=== PATIENT | female | born 1945 ===

== ENCOUNTER 2017-06-08 06:08 | Emergency (ER) | payer OTHER ==
[2017-06-08 06:30] VITALS: RESP 16; TEMP 98.9
[2017-06-08 07:04] LABS: BASO # 0.01 K/mm3 (0.0-2.0); BASO % 0.1 % (0.0-3.0); EOS % 0.3 % (1.5-5.0); GRAN # 8.21 (1.4-6.5); GRAN % 83.4 % (50.0-68.0); HEMOGLOBIN 10.9 g/dL (12.0-16.0); LYMPH # 0.8 (1.2-3.4); LYMPH % 8.1 % (22.0-35.0); MEAN CELL VOLUME 88.8 fl (80.0-105.0); MEAN CORPUSCULAR HEMOGLOBIN 28.5 pg (25.0-35.0); MEAN CORPUSCULAR HGB CONC 32.1 g/dl (31.0-37.0); MEAN PLATELET VOLUME 11.9 fl (7.0-11.0); MONO # 0.8 (0.1-0.6); MONO % 8.1 % (1.0-6.0); RBC 3.83 10^6/uL (3.5-6.1); RED CELL DISTRIBUTION WIDTH 14.5 % (11.5-14.5); WHITE BLOOD COUNT 9.9 10^3/ul (4.5-11.0)
[2017-06-08 07:14] LABS: ALB/GLOB RATIO 1.2 (1.1-1.8); ALBUMIN 3.8 g/dL (3.0-4.8); ALT/SGPT 19 U/L (7-56); AST/SGOT 23 U/L (14-36); BLOOD UREA NITROGEN 18 mg/dL (7-21); CALCIUM 9.7 mg/dL (8.4-10.5); GFR AFRICAN-AMERICAN > 60; GFR NON-AFRICAN AMERICAN > 60
[2017-06-08] MEDS ORDERED: Sodium Chloride 0.9% 1,000 ML IV SCH (07:15)
[2017-06-08 07:47] LABS: INR 2.15 (0.93-1.08); PROTHROMBIN TIME 25.1 SECONDS (9.4-12.5)
--- NOTE | 2017-06-08 07:48 | ED PDOC ---
Arrival/HPI - General Chief Complaint: Abdominal Pain Time Seen by Provider: 06/08/17 06:48 Historian: Patient, Spouse - History of Present Illness Narrative History of Present Illness (Text): 71yoF, hx of afib on coumadin, who had 05/22/17 left under breast incision/ drainage procedure, and now here with left sided chest pain, radiation to the lower abdomen, and with noted pushing out vaginal area but otherwise no n/v/nagy/ dizziness/sob/numbness/tingling/loss of limb function/difficulty urinating/ discharge/bleeding. 06/08/17 07:51 Time/Duration: 24 hours Symptom Onset: Gradual Symptom Course: Intermittent Quality: Aching Severity Level: 2 Activities at Onset: Rest Context: Sitting Past Medical History - Provider Review Nursing Documentation Reviewed: Yes - Travel History Have you recently traveled outside [place] w/in the past 3 mons?: No - Cardiac Hx Cardiac Disorders: Yes Hx Atrial Fibrillation: Yes Hx Hypertension: Yes - Pulmonary Hx Respiratory Disorders: No - Neurological Hx Neurological Disorder: No - HEENT Hx HEENT Disorder: No - Renal Hx Renal Disorder: No - Endocrine/Metabolic Hx Endocrine Disorders: Yes Hx Hypothyroidism: Yes - Hematological/Oncological Hx Blood Disorders: No - Integumentary Hx Dermatological Disorder: Yes Hx Cellulitis: Yes (L breast) - Musculoskeletal/Rheumatological Hx Musculoskeletal Disorders: No - Gastrointestinal Hx Gastrointestinal Disorders: No - Genitourinary/Gynecological Hx Genitourinary Disorders: No - Psychiatric Hx Psychophysiologic Disorder: No Hx Substance Use: No - Surgical History Other/Comment: I&D L breast Family/Social History - Physician Review Nursing Documentation Reviewed: Yes Family/Social History: No Known Family HX Smoking Status: Never Smoked Hx Alcohol Use: No Hx Substance Use: No Allergies/Home Meds Allergies/Adverse Reactions: Allergies No Known Allergies Allergy (Verified 06/08/17 06:33) Review of Systems - Review of Systems Constitutional: Normal Eyes: Normal ENT: Normal Respiratory: Normal Cardiovascular: Chest Pain Gastrointestinal: Abdominal Pain Genitourinary Female: Other (vaginal protrusion) Musculoskeletal: Normal Skin: Normal Neurological: Normal Endocrine: Normal Hemo/Lymphatic: Normal Psychiatric: Normal Physical Exam Vital Signs Reviewed: Yes Vital Signs Temp Pulse Resp BP Pulse Ox 06/08/17 06:24 98.9 F 86 16 132/73 100 Temperature: Afebrile Blood Pressure: Hypertensive Pulse: Regular Respiratory Rate: Normal Appearance: Positive for: Well-Appearing, Non-Toxic, Comfortable Pain Distress: None Mental Status: Positive for: Alert and Oriented X 3 - Systems Exam Head: Present: Atraumatic, Normocephalic Pupils: Present: PERRL Extroacular Muscles: Present: EOMI Conjunctiva: Present: Normal Ears: Present: Normal Mouth: Present: Moist Mucous Membranes Pharnyx: Present: Normal Nose (External): Present: Atraumatic Nose (Internal): Present: Normal Inspection Neck: Present: Normal Range of Motion Respiratory/Chest: Present: Clear to Auscultation, Good Air Exchange Cardiovascular: Present: Regular Rate and Rhythm Abdomen: Present: Other (mild inferior abdomen discomfort, but no upper abdomen tenderness. otherwise soft, no guarding or rebound.) Genitourinary/Pelvic Exam: Present: Other (nurse macey present: vaginal protrusion with easy reduction, and wo cmt/adnexal tenderness. no bleeding/ discharge.) Back: Present: Normal Inspection Upper Extremity: Present: Normal Inspection Lower Extremity: Present: Normal Inspection Neurological: Present: GCS=15, CN II-XII Intact, Speech Normal, Motor Func Grossly Intact Skin: Present: Other (left inferior breast healing wound, induration wo erythema /fluctuance/crepitus.) Psychiatric: Present: Alert, Oriented x 3, Normal Insight, Normal Concentration Medical Decision Making ED Course and Treatment: 71yoF, hx of afib on coumadin, who had 05/22/17 left under breast incision/ drainage procedure, and now here with left sided chest pain, radiation to the lower abdomen, and with noted pushing out vaginal area but otherwise no n/v/nagy/ dizziness/sob/numbness/tingling/loss of limb function/difficulty urinating/ discharge/bleeding. tylenol and aspirin given. ivf hydration signed out to Dr. Almanza to followup labs, cxr, ct cap and disposition. 06/08/17 07:56 06/08/17 08:20 - Lab Interpretations Lab Results: 06/08/17 06:45 06/08/17 06:45 Lab Results 06/08/17 06:45: Troponin I Pending, Lipase 39 06/08/17 06:45: PT 25.1 H, INR 2.15 H, APTT 31.0 06/08/17 06:45: Sodium 139, Potassium 3.5 L, Chloride 97 L, Carbon Dioxide 31, Anion Gap 14, BUN 18, Creatinine 0.9, Est GFR ( Amer) > 60, Est GFR (Non- Af Amer) > 60, Random Glucose 113 H, Calcium 9.7, Total Bilirubin 1.3, AST 23, ALT 19, Alkaline Phosphatase 77, Total Protein 7.1, Albumin 3.8, Globulin 3.3, Albumin/Globulin Ratio 1.2 06/08/17 06:45: WBC 9.9, RBC 3.83, Hgb 10.9 L, Hct 34.0 L, MCV 88.8, MCH 28.5, MCHC 32.1, RDW 14.5, Plt Count 154, MPV 11.9 H, Gran % 83.4 H, Lymph % (Auto) 8.1 L, [place] % (Auto) 8.1 H, Eos % (Auto) 0.3 L, Baso % (Auto) 0.1, Gran # 8.21 H , Lymph # (Auto) 0.8 L, [place] # (Auto) 0.8 H, Eos # (Auto) 0.0, Baso # (Auto) 0.01 - RAD Interpretation Radiology Orders: 06/08/17 07:16 CHEST PORTABLE [RAD] Stat 06/08/17 08:19 CHEST, ABDOMEN WITH CONTRAST [CT] Stat - EKG Interpretation Interpreted by ED Physician: Yes (afib, ) Type: 12 lead EKG - Medication Orders Current Medication Orders: Sodium Chloride (Sodium Chloride 0.9%) 1,000 mls @ 100 mls/hr IV .Q10H [facility] Last Admin: 06/08/17 07:41 Dose: 100 mls/hr eMAR Start Stop Document 06/08/17 07:41 APOLINAR (Rec: 06/08/17 07:41 APOLINAR [id number]) Intravenous Solution Start Date 06/08/17 Start Time 07:41 Discontinued Medications Acetaminophen (Tylenol 325mg Tab) 975 mg PO STAT STA Stop: 06/08/17 07:16 Last Admin: 06/08/17 07:36 Dose: 975 mg Aspirin (Aspirin Chewable) 324 mg PO STAT STA Stop: 06/08/17 07:18 Last Admin: 06/08/17 07:42 Dose: Not Given Non-Admin Reason: Patient Refused Ondansetron HCl (Zofran Inj) 4 mg IVP STAT STA Stop: 06/08/17 07:16 Last Admin: 06/08/17 07:37 Dose: 4 mg IVP Administration Document 06/08/17 07:37 APOLINAR (Rec: 06/08/17 07:37 APOLINAR [id number]) Charges for Administration # of IVP Administrations 1 Disposition/Present on Arrival - Present on Arrival History of DVT/PE: No History of Uncontrolled Diabetes: No Urinary Catheter: No History of Decub. Ulcer: No History Surgical Site Infection Following: None - Disposition Referrals: Nawaf Amador MD [Primary Care Provider] - Follow up with primary Forms: [employer] (Spanish)
[2017-06-08] MEDS ORDERED: Iohexol 350 MG/100 ML VIAL ONE (08:11)
[2017-06-08 08:17] LABS: PH,URINE 7.5 (4.7-8.0); URINE BILIRUBIN NEGATIVE (NEGATIVE); URINE BLOOD TRACE-INTACT (NEGATIVE); URINE GLUCOSE (UA) NEGATIVE (NEGATIVE); URINE LEUKOCYTE ESTERASE NEGATIVE Leu/uL (NEGATIVE); URINE NITRATE NEGATIVE (NEGATIVE); URINE PROTEIN TRACE mg/dL (<30 mg/dL)
[2017-06-08 08:18] LABS: LIPASE 39 U/L (23-300)
[2017-06-08 08:23] LABS: URINE APPEARANCE CLEAR (CLEAR); URINE COLOR YELLOW (YELLOW)
[2017-06-08 08:25] LABS: URINE BACTERIA FEW (NEG); URINE EPITHELIAL CELLS 0 - 2 /hpf (0-5); URINE RBC 0 - 2 /hpf (0-2); URINE WBC 0 - 2 /hpf (0-6)
[2017-06-08 08:30] LABS: TROPONIN I < 0.01 ng/mL
--- NOTE | 2017-06-08 08:32 | ED PDOC ---
Physical Exam Vital Signs Reviewed: Yes Vital Signs Temp Pulse Resp BP Pulse Ox 06/08/17 12:09 79 16 136/75 97 06/08/17 06:24 98.9 F 86 16 132/73 100 Temperature: Afebrile Blood Pressure: Normal Pulse: Regular Respiratory Rate: Normal Appearance: Positive for: Well-Appearing, Non-Toxic, Comfortable Pain Distress: None Mental Status: Positive for: Alert and Oriented X 3 Medical Decision Making ED Course and Treatment: 06/08/17 08:30: Case endorsed to me by Dr. Mcpherson. Patient presented to the emergency department for left-sided chest/breast pain radiating to the lower abdomen. The pain started where her left breats wound is. Pending Abdomen/ Pelvis CT. 06/08/17 08:55 EKG: Ordered, reviewed, and independently interpreted the EKG. Rate : 70 BPM Rhythm : Atrial- Fibrillation PROCEDURE: CT Chest, Abdomen and Pelvis with intravenous contrast Dictator : Merlin Gaines MD Report Date : 06/08/2017 09:54:36 IMPRESSION: 1. Thorax: No significant or acute findings to account for/ related to the clinical presentation. 2. Abdomen and pelvis: Cystic pelvic masses and enlarged uterus which require further evaluation. Pelvic ultrasound may be beneficial for further assessment. Additional benign and/or incidental findings described above. CHEST X-RAY Dictator : Merlin Gaines MD Report Date : 06/08/2017 10:39:47 IMPRESSION: No active disease. 06/08/17 13:55: Discussed CT and Ultrasound results with Dr. Gonzalez who states that the patient has a benign cyst in the abdomen that was not found in the pelvic Ultrasound. There is no abscess. Recommends a repeat study in the future. Patient's symptoms are improved and she states that she wants to go home. She was offered further observation, but she declined stating that she wants to go home and follow up with her PMD. Pelvic Sono: IMPRESSION: Unremarkable uterus, endometrial echo complex. Simple cyst left ovary. Limitations of the current examination: Nonvisualization right adnexal regions As recommended patient received a Pelvic Sono. I discussed the pelvic mass with Dr. Gonzalez Radiologist who states isn't a benign cyst and it's not visualized in the pelvis region. Patient on reevaluation no longer has abdominal pain or tenderness. She wanted to go home and follow up with her primary care doctor. She was informed of the cyst and the importance of follow up. She will make sure to follow up with her primary care doctor. She was advised to return to the ED if symptoms worsen or any other concern. - Critical Care Critical Care Minutes: 30 minutes - Lab Interpretations Lab Results: 06/08/17 06:45 06/08/17 06:45 Lab Results 06/08/17 07:56: Urine Color Yellow, Urine Appearance Clear, Urine pH 7.5, Ur Specific [place] 1.010, Urine Protein Trace H, Urine Glucose (UA) Negative, Urine Ketones Negative, Urine Blood Trace-intact H, Urine Nitrate Negative, Urine Bilirubin Negative, Urine Urobilinogen 1.0 H, Ur Leukocyte Esterase Negative, Urine RBC 0 - 2, Urine WBC 0 - 2, Ur Epithelial Cells 0 - 2, Urine Bacteria Few 06/08/17 06:45: Troponin I < 0.01, Lipase 39 06/08/17 06:45: PT 25.1 H, INR 2.15 H, APTT 31.0 06/08/17 06:45: Sodium 139, Potassium 3.5 L, Chloride 97 L, Carbon Dioxide 31, Anion Gap 14, BUN 18, Creatinine 0.9, Est GFR ( Amer) > 60, Est GFR (Non- Af Amer) > 60, Random Glucose 113 H, Calcium 9.7, Total Bilirubin 1.3, AST 23, ALT 19, Alkaline Phosphatase 77, Total Protein 7.1, Albumin 3.8, Globulin 3.3, Albumin/Globulin Ratio 1.2 06/08/17 06:45: WBC 9.9, RBC 3.83, Hgb 10.9 L, Hct 34.0 L, MCV 88.8, MCH 28.5, MCHC 32.1, RDW 14.5, Plt Count 154, MPV 11.9 H, Gran % 83.4 H, Lymph % (Auto) 8.1 L, [place] % (Auto) 8.1 H, Eos % (Auto) 0.3 L, Baso % (Auto) 0.1, Gran # 8.21 H , Lymph # (Auto) 0.8 L, [place] # (Auto) 0.8 H, Eos # (Auto) 0.0, Baso # (Auto) 0.01 I have reviewed the lab results: Yes - RAD Interpretation Radiology Orders: 06/08/17 07:16 CHEST PORTABLE [RAD] Stat 06/08/17 08:19 CHEST,ABD,PEL W/IV CONT ONLY [CT] Stat 06/08/17 10:39 PELVIS ULTRASOUND [US] Routine - EKG Interpretation Interpreted by ED Physician: Yes Type: 12 lead EKG - Medication Orders Current Medication Orders: Sodium Chloride (Sodium Chloride 0.9%) 1,000 mls @ 100 mls/hr IV .Q10H [facility] Last Admin: 06/08/17 07:41 Dose: 100 mls/hr eMAR Start Stop Document 06/08/17 07:41 RG (Rec: 06/08/17 07:41 APOLINAR [id number]) Intravenous Solution Start Date 06/08/17 Start Time 07:41 Discontinued Medications Acetaminophen (Tylenol 325mg Tab) 975 mg PO STAT STA Stop: 06/08/17 07:16 Last Admin: 06/08/17 07:36 Dose: 975 mg Re-Assess: MAR Pain/Vitals Document 06/08/17 08:36 RG (Rec: 06/08/17 09:45 APOLINAR [id number]) Pain Reassessment Is This A Pain ReAssessment? Yes Sleep Is patient sleeping during reassessment? No Presence of Pain Presence of Pain Yes Pain Scale Used Pain Scale Used Numeric Location Upper or Lower Lower Pain Location Body Site Abdomen Intensity 4 Scale Used Numeric Aspirin (Aspirin Chewable) 324 mg PO STAT STA Stop: 06/08/17 07:18 Last Admin: 06/08/17 07:42 Dose: Not Given Non-Admin Reason: Patient Refused Ondansetron HCl (Zofran Inj) 4 mg IVP STAT STA Stop: 06/08/17 07:16 Last Admin: 06/08/17 07:37 Dose: 4 mg IVP Administration Document 06/08/17 07:37 (Rec: 06/08/17 07:37 APOLINAR [id number]) Charges for Administration # of IVP Administrations 1 Potassium Chloride (K-Dur 20 Meq Er Tab) 40 meq PO STAT STA Stop: 06/08/17 13:54 - Scribe Statement The provider has reviewed the documentation as recorded by the Sandra Robertson Provider Scribe Attestation: All medical record entries made by the Scribe were at my direction and personally dictated by me. I have reviewed the chart and agree that the record accurately reflects my personal performance of the history, physical exam, medical decision making, and the department course for this patient. I have also personally directed, reviewed, and agree with the discharge instructions and disposition. Disposition/Present on Arrival - Present on Arrival Any Indicators Present on Arrival: No History of DVT/PE: No History of Uncontrolled Diabetes: No Urinary Catheter: No History of Decub. Ulcer: No History Surgical Site Infection Following: None - Disposition Have Diagnosis and Disposition been Completed?: Yes Diagnosis: Chest pain, Abdominal pain, Abdominal cyst, Ovarian cyst Disposition: HOME/ ROUTINE Disposition Time: 14:11 Patient Plan: Discharge Condition: IMPROVED Discharge Instructions (ExitCare): Chest Pain (ED) Additional Instructions: Ms Marte, thank you for letting us take care of you today. Your provider was Dr. Almanza You were treated for Chest and Abdominal pain, Abdominal Cyst, Ovarian Cyst. The emergency medical care you received today was directed at your acute symptoms. If you were prescribed any medication, please fill it and take as directed. It may take several days for your symptoms to resolve. Return to the Emergency Department if your symptoms worsen, do not improve, or if you have any other problems. Please contact your doctor or call one of the physicians/clinics you have been referred to that are listed on the Patient Visit Information form that is included in your discharge packet. Bring any paperwork you were given at discharge with you along with any medications you are taking to your follow up visit. Our treatment cannot replace ongoing medical care by a primary care provider (PCP) outside of the emergency department. Thank you for allowing the [facility] team to be part of your care today. If you had an X-Ray or CT scan: A Radiologist will review the ED reading if any change in treatment is needed we will contact you. If you had a blood, urine, or wound culture: It will take several days for the results, if any change in treatment is needed we will contact you. If you had an STI test: It will take 48 hours for the results. Please call after 1 week if you have not heard back. Referrals: Nawaf Amador MD [Primary Care Provider] - Follow up with primary Forms: [employer] (Martiniquais)
--- NOTE | 2017-06-08 09:56 | CT ---
PROCEDURE: CT Chest, Abdomen and Pelvis with intravenous contrast HISTORY: Left inferior breast wound, chest pain, abdominal pain and tenderness COMPARISON: None. TECHNIQUE: IV dose administered: 100 cc Omnipaque 350 Radiation dose: Total exam DLP = 866.66 mGy-cm. This CT exam was performed using one or more of the following dose reduction techniques: Automated exposure control, adjustment of the mA and/or kV according to patient size, and/or use of iterative reconstruction technique. FINDINGS: CT CHEST WITH CONTRAST: LUNGS: Clear. No nodule, mass or consolidation. MEDIASTINUM: Unremarkable. Normal caliber aorta and pulmonary arterial trunk. No aortic dissection. Normal size heart. LYMPH NODES: Unremarkable. PLEURA: Unremarkable. No pneumothorax. No pleural fluid. BONES: Unremarkable. OTHER FINDINGS: CT ABDOMEN AND PELVIS: LIVER: Unremarkable. No gross lesion or ductal dilatation. GALLBLADDER AND BILE DUCTS: Unremarkable. PANCREAS: Unremarkable. No gross lesion or ductal dilatation. SPLEEN: Unremarkable. ADRENALS: Unremarkable. No mass. KIDNEYS AND URETERS: Unremarkable. No hydronephrosis. No solid mass. Incidental finding(s): Multiple left renal cysts the largest in the inferior pole 3.5 cm. VASCULATURE: Unremarkable. No aortic aneurysm. BOWEL: Constipation without fecal impaction or obstruction. APPENDIX: Normal appendix. PERITONEUM: Unremarkable. No free fluid. No free air. LYMPH NODES: Unremarkable. No enlarged lymph nodes. BLADDER: Unremarkable. REPRODUCTIVE: Enlarged uterus common the may be multiple fibroids. BONES: No acute fracture. OTHER FINDINGS: Cystic pelvic masses 1 appears to emanate from the left adnexa 2.6 cm. An additional more cephalad cystic mass measures 3.6 x 3.9 cm. IMPRESSION: 1. Thorax: No significant or acute findings to account for/ related to the clinical presentation. 2. Abdomen and pelvis: Cystic pelvic masses and enlarged uterus which require further evaluation. Pelvic ultrasound may be beneficial for further assessment. Additional benign and/or incidental findings described above.
--- NOTE | 2017-06-08 10:41 | RAD ---
HISTORY: Chest pain. COMPARISON: June 08, 2017. CT thorax abdomen and pelvis. FINDINGS: LUNGS: No active pulmonary disease. PLEURA: No significant pleural effusion identified, no pneumothorax apparent. CARDIOVASCULAR: No radiographic findings to suggest acute or significant cardiovascular disease. OSSEOUS STRUCTURES: No significant abnormalities. VISUALIZED UPPER ABDOMEN: Normal. OTHER FINDINGS: None. IMPRESSION: No active disease.
[2017-06-08 12:50] VITALS: BP 136/75; PULSE 79; O2SAT 97
[2017-06-08] MEDS ORDERED: Potassium Chloride 20 mEq ER Tab PO STA (13:53)
--- NOTE | 2017-06-08 14:02 | US ---
HISTORY: evaluate cystic masses as per CT rad report COMPARISON: June 08, 2017. CT abdomen and pelvis. TECHNIQUE: Transabdominal only. Real-time technique with 2D, duplex and color Doppler FINDINGS: UTERUS: Measures 2.7 x 4 x 6.9 cm. Normal in size and appearance. No fibroid or other mass lesion seen. ENDOMETRIUM: Measures 3.9 mm in diameter. No ultrasound findings to suggest gestational sac, fluid, debris, mass or polyp or other pathologic process within the endometrium. CERVIX: No cervical abnormality identified. RIGHT OVARY: Not visualized. LEFT OVARY: Measures 3.4 x 3.5 x 4.3 cm. No solid mass. Normal flow. Simple cyst 1.8 x 1.7 x 2.1 cm corresponds to the finding adjacent to the uterus on the left. FREE FLUID: No significant free fluid noted. OTHER FINDINGS: None. IMPRESSION: Unremarkable uterus, endometrial echo complex. Simple cyst left ovary. Limitations of the current examination: Nonvisualization right adnexal regions
--- NOTE | 2017-06-08 21:33 | CARD ---
APPROVED REPORT EKG Measurement Heart [id number] <Conclusion> Atrial fibrillation Nonspecific T wave abnormality, probably digitalis effect Abnormal ECG
== END 2017-06-08 14:11 | disposition home or self-care (01) ==
LOC: ED 06:08
DX: R07.9 Chest pain, unspecified (principal); N83.202 Unspecified ovarian cyst, left side; R10.9 Unspecified abdominal pain; I10 Essential (primary) hypertension; I48.91 Unspecified atrial fibrillation
CPT/HCPCS: 71045; 71260; 74177; 76856; 80053; 81001; 83690; 84484; 85025; 85610; 85730; 87086; 93005; 96374; 99284; J2405; J7040; Q9967